=== PATIENT | female | born 1985 | race American Indian/Alaskan Native ===

== ENCOUNTER 2017-10-15 18:28 | Emergency (ER) | payer SELFPAY ==
[2017-10-15 18:46] VITALS: BP 113/79
--- NOTE | 2017-10-15 23:21 | Emergency Department Report ---
HPI - General Chief Complaint: Chest Pain Time Seen by Provider: 10/15/17 23:16 - HPI HPI: 2-year-old -[place] female comes in today for right side chest discomfort. Patient reports that this started today. She denies any cough fever no body aches no chills no nausea no vomiting no diarrhea no dysuria no shortness of breath. Past medical history gestational diabetes and preeclampsia with her fifth child. She has no known drug allergies currently taking no meds. She has not tried any OTC pain medication for this discomfort. ED Past Medical Hx - Past Medical History Previous Medical History?: Yes Hx Hypertension: Yes (Preeclampsia with 5th child) Hx Congestive Heart Failure: No Hx Diabetes: Yes (gestational DM) Hx Deep Vein Thrombosis: No Hx Renal Disease: No Hx Sickle Cell Disease: No Hx Seizures: No Hx Asthma: No Hx COPD: No Hx HIV: No - Surgical History Past Surgical History?: Yes Additional Surgical History: - Social History Smoking Status: Current Every Day Smoker Substance Use Type: None - Medications Home Medications: Home Medications Medication Instructions Recorded Confirmed Last Taken Type Vit No.126/Iron/Folic 1 each PO DAILY 11/18/13 12/29/13 12/21/13 21:22 History [Classic Tablet] ED Review of Systems ROS: Stated complaint: FLU LIKE SYMPTOMS Other details as noted in HPI Comment: All other systems reviewed and negative Constitutional: denies: chills, fever Eyes: denies: eye pain, eye discharge, vision change ENT: denies: ear pain, throat pain Respiratory: other (right chest discomfort feels like she needs to cough but no coughing) Cardiovascular: denies: chest pain, palpitations Endocrine: no symptoms reported Gastrointestinal: denies: abdominal pain, nausea, diarrhea Genitourinary: denies: urgency, dysuria, discharge Musculoskeletal: denies: back pain, joint swelling, arthralgia Skin: denies: rash, lesions Neurological: denies: headache, weakness, paresthesias Psychiatric: denies: anxiety, depression Hematological/Lymphatic: denies: easy bleeding, easy bruising Physical Exam - Physical Exam Vital Signs: Vital Signs 10/15/17 18:42 Temperature 98.6 F Pulse Rate 89 Respiratory 18 Rate Blood Pressure 113/79 O2 Sat by Pulse 98 Oximetry Physical Exam: GENERAL: Alert and oriented x3, no apparent distress, Normal Gait, atraumatic. HEAD: Head is normocephalic and a-traumatic. EYES: Extra ocular muscles are intact. Pupils are equal, round, and reactive to light and accommodation. EARS: symetrical, atraumatic, non tender, ear canal clear and moderate cerumen, tympanic membrance non inflamed. gross auditory nml bilaterally. NOSE: Nose symetrical, Nontender,Nares appeared normal. MOUTH:Mouth is well hydrated and without lesions. Tonsils nonerythematous or swollen, Uvula midline, Tongue not elevated. Mucous membranes are moist. Posterior pharynx clear, no exudate or lesions. Patent airways. NECK: Supple. Non edematous, No carotid bruits. No lymphadenopathy or thyromegaly. LUNGS: Symetrical with respiration, No wheezing, no rales or crackles, CTAB. HEART: S1, S2 present, regular rate and rhythm without murmur, no rubs, no gallops. ABDOMEN: No organomegaly was noted,Positive bowel sounds, soft, and non- distended. . Nontender to palpation on all Quadrants, NO CVA tenderness. EXTREMITIES/MUSCULOSKELETAL: No cyanosis, clubbing, rash, lesions or edema. Full ROM bilaterally. UE/LE Pulses 2+ bilaterally. LE and UE 5+ strength bilaterally NEUROLOGIC: No focal Deficit, Cranial nerves II through XII are grossly intact. No loss of sensation, No facial droop, PSYCHIATRIC: Mood is congruent with affect, denies suicidal or homicidal ideations. SKIN: Warm and dry, No lesions, No ulceration or induration present ED Course Vital Signs 10/15/17 18:42 Temperature 98.6 F Pulse Rate 89 Respiratory 18 Rate Blood Pressure 113/79 O2 Sat by Pulse 98 Oximetry ED Medical Decision Making - Radiology Data Radiology results: report reviewed Impression negative examination - Medical Decision Making Patient has been evaluated by this provider fast track. Patient's symptoms are very vague. I discussed with the chest x-ray. Critical care attestation.: If time is entered above; I have spent that time in minutes in the direct care of this critically ill patient, excluding procedure time. ED Disposition Clinical Impression: Discomfort in chest Disposition: DC-01 TO HOME OR SELFCARE Is pt being admited?: No Does the pt Need Aspirin: No Condition: Stable Additional Instructions: Chest x-ray was negative. You can take Tylenol or Motrin for chest discomfort follow-up with [facility] for further evaluation. Referrals: PRIMARY CARE, [Primary Care Provider] - 3-5 Days [facility] [Provider Group] - 3-5 Days Forms: Accompanied Note, Work/School Release Form(ED)
--- NOTE | 2017-10-16 00:39 | XRay Report ---
FINAL REPORT PROCEDURE: XR CHEST ROUTINE 2V TECHNIQUE: PA and lateral chest radiographs were obtained. CPT 00348 HISTORY: chest discomfort COMPARISON: No prior studies are available for comparison. FINDINGS: Heart: Normal size. Mediastinum/Vessels: Normal. Lungs/Pleural space: Normal. Bony thorax: No acute osseous abnormality. Other: IMPRESSION: Negative examination.
== END 2017-10-16 01:10 | disposition home or self-care (01) ==
LOC: ED 18:28
DX: R07.89 Other chest pain (principal); I10 Essential (primary) hypertension; F17.200 Nicotine dependence, unspecified, uncomplicated
CPT/HCPCS: 71046; 93005; 93010; 99283

== ENCOUNTER 2018-04-24 21:12 | Emergency (ER) | payer SELFPAY ==
[2018-04-24 21:40] VITALS: BP 123/82
[2018-04-25] MEDS ORDERED: NORCO 5/325 PO ONE (00:05)
[2018-04-25] MEDS ORDERED: NORCO 5/325 ONE (00:07)
--- NOTE | 2018-04-25 01:06 | Emergency Department Report ---
ED ENT HPI - General Chief complaint: Dental/Oral Stated complaint: TOOTHACHE Time Seen by Provider: 04/25/18 01:01 Source: patient Mode of arrival: Ambulatory Limitations: No Limitations - History of Present Illness Initial comments: Patient 33-year-old female who presents for dental pain 1 week history of infected dental caries there is no fever no chills no sore throat no ear pain patient continues to tolerate by mouth intake is 4/10 and aching patient hasn' t been unable to see dentist MD complaint: tooth pain Onset/Timin -: week(s) Location: tooth # (18) Severity: moderate Severity scale (0 -10): 4 Quality: aching Consistency: intermittent Improves with: none Worsens with: other (hot and cold stimuli ) Context- Dental: history of dental caries, poor dental care Associated Symptoms: toothache - Related Data Home Medications Medication Instructions Recorded Confirmed Last Taken Vit No.126/Iron/Folic 1 each PO DAILY 11/18/13 12/29/13 12/21/13 21:22 [Classic Tablet] Previous Rx's Medication Instructions Recorded Last Taken Type Amoxicillin 500 mg PO TID #30 capsule 04/25/18 Unknown Rx Chlorhexidine Mouthwash [Peridex] 15 ml MM BID #1 bottle 04/25/18 Unknown Rx Ibuprofen 800 mg PO TID PRN #30 tablet 04/25/18 Unknown Rx Allergies Allergy/AdvReac Type Severity Reaction Status Date / Time No Known Allergies Allergy Verified 11/18/13 15:53 ED Dental HPI - General Chief complaint: Dental/Oral Stated complaint: TOOTHACHE Time Seen by Provider: 04/25/18 01:01 Source: patient Mode of arrival: Ambulatory Limitations: No Limitations - Related Data Home Medications Medication Instructions Recorded Confirmed Last Taken Vit No.126/Iron/Folic 1 each PO DAILY 11/18/13 12/29/13 12/21/13 21:22 [Classic Tablet] Previous Rx's Medication Instructions Recorded Last Taken Type Amoxicillin 500 mg PO TID #30 capsule 04/25/18 Unknown Rx Chlorhexidine Mouthwash [Peridex] 15 ml MM BID #1 bottle 04/25/18 Unknown Rx Ibuprofen 800 mg PO TID PRN #30 tablet 04/25/18 Unknown Rx Allergies Allergy/AdvReac Type Severity Reaction Status Date / Time No Known Allergies Allergy Verified 11/18/13 15:53 ED Review of Systems ROS: Stated complaint: TOOTHACHE Other details as noted in HPI Constitutional: denies: chills, fever Eyes: denies: eye pain, eye discharge, vision change ENT: dental pain Respiratory: denies: cough, shortness of breath, wheezing Cardiovascular: denies: chest pain, palpitations Endocrine: no symptoms reported Gastrointestinal: denies: abdominal pain, nausea, diarrhea Genitourinary: denies: urgency, dysuria, discharge Musculoskeletal: denies: back pain, joint swelling, arthralgia Skin: denies: rash, lesions Neurological: denies: headache, weakness, paresthesias Psychiatric: denies: anxiety, depression Hematological/Lymphatic: denies: easy bleeding, easy bruising ED Past Medical Hx - Past Medical History Hx Hypertension: Yes (Preeclampsia with 5th child) Hx Congestive Heart Failure: No Hx Diabetes: Yes (gestational DM) Hx Deep Vein Thrombosis: No Hx Renal Disease: No Hx Sickle Cell Disease: No Hx Seizures: No Hx Asthma: No Hx COPD: No Hx HIV: No - Surgical History Additional Surgical History: - Social History Smoking Status: Never Smoker Substance Use Type: None - Medications Home Medications: Home Medications Medication Instructions Recorded Confirmed Last Taken Type Vit No.126/Iron/Folic 1 each PO DAILY 11/18/13 12/29/13 12/21/13 21:22 History [Classic Tablet] Amoxicillin 500 mg PO TID #30 capsule 04/25/18 Unknown Rx Chlorhexidine Mouthwash [Peridex] 15 ml MM BID #1 bottle 04/25/18 Unknown Rx Ibuprofen 800 mg PO TID PRN #30 tablet 04/25/18 Unknown Rx ED Physical Exam - General Limitations: No Limitations General appearance: alert, in no apparent distress - Head Head exam: Present: atraumatic, normocephalic - Eye Eye exam: Present: normal appearance - ENT ENT exam: Present: mucous membranes moist, TM's normal bilaterally, normal external ear exam - Expanded ENT Exam Expanded Mouth exam: Absent: trismus Teeth exam: Present: dental caries, dental tenderness # (18 no focal abscess no gum or facial swelling uvula midline no edema no stridor ) Throat exam: Positive: normal inspection. Negative: tonsillar erythema, tonsillomegaly, tonsillar exudate, R peritonsillar mass, L peritonsillar mass - Neck Neck exam: Present: normal inspection, full ROM. Absent: tenderness, meningismus, lymphadenopathy, thyromegaly - Respiratory Respiratory exam: Present: normal lung sounds bilaterally. Absent: respiratory distress, wheezes, chest wall tenderness - Cardiovascular Cardiovascular Exam: Present: regular rate, normal rhythm, normal heart sounds. Absent: systolic murmur, diastolic murmur, rubs, gallop - GI/Abdominal GI/Abdominal exam: Present: soft, normal bowel sounds. Absent: tenderness, bruit, hernia - Rectal Rectal exam: Present: deferred - Extremities Exam Extremities exam: Present: normal inspection - Back Exam Back exam: Present: normal inspection - Neurological Exam Neurological exam: Present: alert, oriented X3, CN II-XII intact, normal gait, reflexes normal - Psychiatric Psychiatric exam: Present: normal affect, normal mood - Skin Skin exam: Present: warm, dry, intact, normal color. Absent: rash ED Course Vital Signs 04/24/18 21:35 Temperature 99 F Pulse Rate 76 Respiratory 16 Rate Blood Pressure 123/82 O2 Sat by Pulse 100 Oximetry ED Medical Decision Making - Medical Decision Making Patient presents with dental pain with infected dental caries there is no facial swelling mild gum erythema to #18 is no trismus or stridor . Uvula is midline patient is tolerating by mouth intake without complications or throat pain plan DC'd home prescription for amoxicillin Peridex ibuprofen patient will follow with [facility] in 2-3 days patient verbalizes understanding and agreement was signed be DC'd home in stable condition at this Critical care attestation.: If time is entered above; I have spent that time in minutes in the direct care of this critically ill patient, excluding procedure time. ED Disposition Clinical Impression: Infected dental carries Disposition: DC-01 TO HOME OR SELFCARE Is pt being admited?: No Does the pt Need Aspirin: No Condition: Good Instructions: Toothache (ED), Dental Caries (ED) Prescriptions: Amoxicillin 500 mg PO TID #30 capsule Chlorhexidine Mouthwash [Peridex] 15 ml MM BID #1 bottle Ibuprofen 800 mg PO TID PRN #30 tablet PRN Reason: pain Referrals: [facility] [Outside] - 3-5 Days Forms: Work/School Release Form(ED) Time of Disposition: 01:11
== END 2018-04-25 01:28 | disposition home or self-care (01) ==
LOC: ED 21:12
DX: K02.9 Dental caries, unspecified (principal); I10 Essential (primary) hypertension
CPT/HCPCS: 99282

== ENCOUNTER 2019-03-24 11:12 | Emergency (ER) | payer MEDICAID ==
[2019-03-24] MEDS ORDERED: STADOL IV ONE (12:28)
[2019-03-24] MEDS ORDERED: ZOFRAN IV ONE (12:28)
[2019-03-24 13:31] LABS: Basophils # (Auto) 0.1 K/mm3 (0.0-0.1); Basophils % (Auto) 0.9 % (0.0-1.8); Eosinophils # (Auto) 0.1 K/mm3 (0.0-0.4); Eosinophils % (Auto) 1.7 % (0.0-4.3); Hematocrit 32.4 % (30.3-42.9); Hemoglobin 10.9 gm/dl (10.1-14.3); Lymphocytes # (Auto) 1.9 K/mm3 (1.2-5.4); Lymphocytes % (Auto) 24.2 % (13.4-35.0); Mean Corpuscular HGB Conc 34 % (30-34); Mean Corpuscular Volume 88 fl (79-97); Monocytes # (Auto) 0.6 K/mm3 (0.0-0.8); Monocytes % (Auto) 7.7 % (0.0-7.3); Platelet Count 208 K/mm3 (140-440); Red Blood Count 3.68 M/mm3 (3.65-5.03); Red Cell Distribution Width 15.1 % (13.2-15.2)
[2019-03-24 13:43] LABS: INR 1.06 (0.87-1.13)
--- NOTE | 2019-03-24 13:43 | Ultrasound Report ---
OB ULTRASOUND >= 14 WEEKS FETUS INDICATION: Lower abdominal pain/fatigue for 3 days COMPARISON: None FINDINGS: A single gestation intrauterine is present with variable presentation. The placenta is ante rior, grade 1 and free of the cervical os. heart tones measure 144 bpm. Amniotic fluid volume is subjectively normal. anatomical survey was not performed. Biparietal diameter is 3.5 cm which equals 16 weeks 5 days. Head circumference is 13.0 cm which equals 16 weeks 4 days. Abdominal circumference is 10.1 cm which equals 16 weeks 1 day. Femur length is 2.1 cm which equals 16 weeks 1 day. Overall estimated sonographic age is 16 weeks 3 days. Estimated due date 09/05/2019. Estimated weight: 147 g +/- 22 g. HC/AC ratio: 1.29. Cephalic index: 83.7.. IMPRESSION: Viable single intrauterine as described. No acute abnormality is detected. Signer Name: Gustabo José Jr, MD Signed: 03/24/2019 1:39 PM Workstation Name: [id number]
--- NOTE | 2019-03-24 13:52 | Emergency Department Report ---
ED General Adult HPI - General Chief complaint: Abdominal Pain Stated complaint: WEAKNESS/17WKS PREG Time Seen by Provider: 03/24/19 11:54 Source: EMS Mode of arrival: Stretcher Limitations: No Limitations - History of Present Illness Initial comments: She presents to emergency department with a chief complaint of low abdominal cramping and pain. The patient is approximately 17 weeks and denies any vaginal bleeding in the discharge. Patient states the symptoms started yesterday. Patient also complains of a lightheaded and feels dehydrated. -: Sudden Location: abdomen Severity scale (0 -10): 5 Quality: sharp Consistency: constant Improves with: none Worsens with: none Associated Symptoms: denies other symptoms Treatments Prior to Arrival: none - Related Data Home Medications Medication Instructions Recorded Confirmed Last Taken Vit No.126/Iron/Folic 1 each PO DAILY 11/18/13 12/29/13 12/21/13 21:22 [Classic Tablet] Previous Rx's Medication Instructions Recorded Last Taken Type Amoxicillin 500 mg PO TID #30 capsule 04/25/18 Unknown Rx Chlorhexidine Mouthwash [Peridex] 15 ml MM BID #1 bottle 04/25/18 Unknown Rx Ibuprofen 800 mg PO TID PRN #30 tablet 04/25/18 Unknown Rx Acetaminophen/Codeine [Tylenol 1 tab PO Q6H PRN #15 tab 03/24/19 Unknown Rx /Codeine # 3 tab] Ondansetron [Zofran Odt] 4 mg PO Q4HR PRN #20 tab.rapdis 03/24/19 Unknown Rx Allergies Allergy/AdvReac Type Severity Reaction Status Date / Time No Known Allergies Allergy Verified 11/18/13 15:53 ED Review of Systems ROS: Stated complaint: WEAKNESS/17WKS PREG Other details as noted in HPI Comment: All other systems reviewed and negative Constitutional: denies: chills, fever Eyes: denies: eye pain, eye discharge, vision change ENT: denies: ear pain, throat pain Respiratory: denies: cough, shortness of breath, wheezing Cardiovascular: denies: chest pain, palpitations Endocrine: no symptoms reported Gastrointestinal: abdominal pain. denies: nausea, diarrhea Genitourinary: denies: urgency, dysuria, discharge Musculoskeletal: denies: back pain, joint swelling, arthralgia Skin: denies: rash, lesions Neurological: denies: headache, weakness, paresthesias Psychiatric: denies: anxiety, depression Hematological/Lymphatic: denies: easy bleeding, easy bruising ED Past Medical Hx - Past Medical History Previous Medical History?: Yes Hx Hypertension: Yes (Preeclampsia with 5th child) Hx Congestive Heart Failure: No Hx Diabetes: Yes (gestational DM) Hx Deep Vein Thrombosis: No Hx Renal Disease: No Hx Sickle Cell Disease: No Hx Seizures: No Hx Asthma: No Hx COPD: No Hx HIV: No - Surgical History Past Surgical History?: Yes Additional Surgical History: - Social History Smoking Status: Never Smoker Substance Use Type: None - Medications Home Medications: Home Medications Medication Instructions Recorded Confirmed Last Taken Type Vit No.126/Iron/Folic 1 each PO DAILY 11/18/13 12/29/13 12/21/13 21:22 History [Classic Tablet] Amoxicillin 500 mg PO TID #30 capsule 04/25/18 Unknown Rx Chlorhexidine Mouthwash [Peridex] 15 ml MM BID #1 bottle 04/25/18 Unknown Rx Ibuprofen 800 mg PO TID PRN #30 tablet 04/25/18 Unknown Rx Acetaminophen/Codeine [Tylenol 1 tab PO Q6H PRN #15 tab 03/24/19 Unknown Rx /Codeine # 3 tab] Ondansetron [Zofran Odt] 4 mg PO Q4HR PRN #20 tab.rapdis 03/24/19 Unknown Rx ED Physical Exam - General Limitations: No Limitations General appearance: alert, in no apparent distress - Head Head exam: Present: atraumatic, normocephalic - Eye Eye exam: Present: normal appearance, PERRL, EOMI - ENT ENT exam: Present: mucous membranes moist - Neck Neck exam: Present: normal inspection - Respiratory Respiratory exam: Present: normal lung sounds bilaterally. Absent: respiratory distress - Cardiovascular Cardiovascular Exam: Present: regular rate, normal rhythm. Absent: systolic murmur, diastolic murmur, rubs, gallop - GI/Abdominal GI/Abdominal exam: Present: soft, tenderness (TTP diffusely ), normal bowel sounds. Absent: distended - Extremities Exam Extremities exam: Present: normal inspection - Back Exam Back exam: Present: normal inspection - Neurological Exam Neurological exam: Present: alert, oriented X3, CN II-XII intact. Absent: motor sensory deficit - Psychiatric Psychiatric exam: Present: normal affect, normal mood - Skin Skin exam: Present: warm, dry, intact, normal color. Absent: rash ED Course Vital Signs 03/24/19 03/24/19 03/24/19 11:44 11:47 11:53 Temperature 97.8 F Pulse Rate 67 Respiratory 16 Rate Blood Pressure 115/68 O2 Sat by Pulse 100 100 100 Oximetry 03/24/19 03/24/19 03/24/19 12:00 12:15 13:25 Temperature Pulse Rate Respiratory Rate Blood Pressure 89/53 89/53 108/69 O2 Sat by Pulse 100 100 100 Oximetry 03/24/19 03/24/19 13:31 13:45 Temperature Pulse Rate Respiratory Rate Blood Pressure 96/60 95/58 O2 Sat by Pulse 100 100 Oximetry ED Medical Decision Making - Lab Data Result diagrams: 03/24/19 13:16 03/24/19 13:16 Lab Results 03/24/19 03/24/19 03/24/19 Range/Units 13:16 13:16 13:16 WBC 7.7 (4.5-11.0) K/mm3 RBC 3.68 (3.65-5.03) M/mm3 Hgb 10.9 (10.1-14.3) gm/dl Hct 32.4 (30.3-42.9) % MCV 88 (79-97) fl MCH 30 (28-32) pg MCHC 34 (30-34) % RDW 15.1 (13.2-15.2) % Plt Count 208 (140-440) K/mm3 Lymph % (Auto) 24.2 (13.4-35.0) % [place] % (Auto) 7.7 H (0.0-7.3) % Eos % (Auto) 1.7 (0.0-4.3) % Baso % (Auto) 0.9 (0.0-1.8) % Lymph # 1.9 (1.2-5.4) K/mm3 [place] # 0.6 (0.0-0.8) K/mm3 Eos # 0.1 (0.0-0.4) K/mm3 Baso # 0.1 (0.0-0.1) K/mm3 Seg Neutrophils % 65.5 (40.0-70.0) % Seg Neutrophils # 5.0 (1.8-7.7) K/mm3 PT 13.5 (12.2-14.9) Sec. INR 1.06 (0.87-1.13) APTT 29.0 (24.2-36.6) Sec. Sodium 134 L (137-145) mmol/L Potassium 3.8 (3.6-5.0) mmol/L Chloride 99.3 (98-107) mmol/L Carbon Dioxide 23 (22-30) mmol/L Anion Gap 16 mmol/L BUN 5 L (7-17) mg/dL Creatinine 0.3 L (0.7-1.2) mg/dL Estimated GFR > 60 ml/min BUN/Creatinine Ratio 17 % Glucose 82 (65-100) mg/dL Calcium 9.0 (8.4-10.2) mg/dL Total Bilirubin 0.70 (0.1-1.2) mg/dL AST 19 (5-40) units/L ALT 11 (7-56) units/L Alkaline Phosphatase 34 L (35-129) units/L Total Protein 6.9 (6.3-8.2) g/dL Albumin 4.0 (3.9-5) g/dL Albumin/Globulin Ratio 1.4 % Urine Color (Yellow) Urine Turbidity (Clear) Urine pH (5.0-7.0) Ur Specific [place] (1.003-1.030) Urine Protein (Negative) mg/dL Urine Glucose (UA) (Negative) mg/dL Urine Ketones (Negative) mg/dL Urine Blood (Negative) Urine Nitrite (Negative) Urine Bilirubin (Negative) Urine Urobilinogen (<2.0) mg/dL Ur Leukocyte Esterase (Negative) Urine WBC (Auto) (0.0-6.0) /HPF Urine RBC (Auto) (0.0-6.0) /HPF U Epithel Cells (Auto) (0-13.0) /HPF Urine Bacteria (Auto) (Negative) /HPF Urine Mucus /HPF 03/24/19 Range/Units Unknown WBC (4.5-11.0) K/mm3 RBC (3.65-5.03) M/mm3 Hgb (10.1-14.3) gm/dl Hct (30.3-42.9) % MCV (79-97) fl MCH (28-32) pg MCHC (30-34) % RDW (13.2-15.2) % Plt Count (140-440) K/mm3 Lymph % (Auto) (13.4-35.0) % [place] % (Auto) (0.0-7.3) % Eos % (Auto) (0.0-4.3) % Baso % (Auto) (0.0-1.8) % Lymph # (1.2-5.4) K/mm3 [place] # (0.0-0.8) K/mm3 Eos # (0.0-0.4) K/mm3 Baso # (0.0-0.1) K/mm3 Seg Neutrophils % (40.0-70.0) % Seg Neutrophils # (1.8-7.7) K/mm3 PT (12.2-14.9) Sec. INR (0.87-1.13) APTT (24.2-36.6) Sec. Sodium (137-145) mmol/L Potassium (3.6-5.0) mmol/L Chloride (98-107) mmol/L Carbon Dioxide (22-30) mmol/L Anion Gap mmol/L BUN (7-17) mg/dL Creatinine (0.7-1.2) mg/dL Estimated GFR ml/min BUN/Creatinine Ratio % Glucose (65-100) mg/dL Calcium (8.4-10.2) mg/dL Total Bilirubin (0.1-1.2) mg/dL AST (5-40) units/L ALT (7-56) units/L Alkaline Phosphatase (35-129) units/L Total Protein (6.3-8.2) g/dL Albumin (3.9-5) g/dL Albumin/Globulin Ratio % Urine Color Yellow (Yellow) Urine Turbidity Hazy (Clear) Urine pH 6.0 (5.0-7.0) Ur Specific [place] 1.020 (1.003-1.030) Urine Protein <15 mg/dl (Negative) mg/dL Urine Glucose (UA) Neg (Negative) mg/dL Urine Ketones 20 (Negative) mg/dL Urine Blood Neg (Negative) Urine Nitrite Neg (Negative) Urine Bilirubin Neg (Negative) Urine Urobilinogen < 2.0 (<2.0) mg/dL Ur Leukocyte Esterase Neg (Negative) Urine WBC (Auto) 1.0 (0.0-6.0) /HPF Urine RBC (Auto) 2.0 (0.0-6.0) /HPF U Epithel Cells (Auto) 5.0 (0-13.0) /HPF Urine Bacteria (Auto) 1+ (Negative) /HPF Urine Mucus Few /HPF - Radiology Data Radiology results: image reviewed - Medical Decision Making Discussed results with patient follows [facility] at [facility] Critical care attestation.: If time is entered above; I have spent that time in minutes in the direct care of this critically ill patient, excluding procedure time. ED Disposition Clinical Impression: Abdominal pain during Disposition: DC-01 TO HOME OR SELFCARE Is pt being admited?: No Does the pt Need Aspirin: No Condition: Stable Instructions: Abdominal Pain (ED), (ED) Referrals: RAMA HARDING MD [Primary Care Provider] - 3-5 Days [facility] [Provider Group] - 3-5 Days Time of Disposition: 15:55
[2019-03-24] MEDS ORDERED: NACL 0.9% 1000 ML 1,000 ML IV ONE (13:53)
[2019-03-24 13:54] LABS: Alanine Aminotransferase 11 units/L (7-56); BUN/Creatinine Ratio 17; Blood Urea Nitrogen 5 mg/dL (7-17); Hemolysis Index 27
[2019-03-24 14:56] LABS: Bacteria,Urine 1+ /HPF (Negative); Bilirubin,Urine NEG (Negative); Blood,Urine NEG (Negative); Color,Urine Yellow (Yellow); Mucus,Urine FEW /HPF; Protein,Urine <15 mg/dL mg/dL (Negative); Urobilinogen,Urine < 2.0 mg/dL (<2.0)
[2019-03-24 16:21] VITALS: BP 104/54
== END 2019-03-24 16:22 | disposition home or self-care (01) ==
LOC: ED 11:12
DX: O26.892 Other specified pregnancy related conditions, second trimester (principal); R10.30 Lower abdominal pain, unspecified; R42 Dizziness and giddiness; O16.2 Unspecified maternal hypertension, second trimester; O24.419 Gestational diabetes mellitus in pregnancy, unspecified control; Z3A.17 17 weeks gestation of pregnancy; Z98.890 Other specified postprocedural states; Z79.899 Other long term (current) drug therapy
CPT/HCPCS: 36415; 76805; 80053; 81001; 85025; 85610; 85730; 96361; 96374; 96375; 99284; J0595; J2405; J7030

== ENCOUNTER 2019-07-21 19:52 | Inpatient (IN) | payer MEDICAID ==
[2019-07-21] MEDS ORDERED: LACTATED RINGERS 1,000 ML IV ONE (20:59)
[2019-07-21] MEDS: TERBUTALINE 1 MG/1 ML INJ SUB-Q SCH ×2 (21:35→22:40)
--- NOTE | 2019-07-21 22:25 | Ultrasound Report ---
ULTRASOUND OBSTETRIC INDICATION: contractions. Clinical age of 17 weeks, 4 days. TECHNIQUE: Transabdominal. COMPARISON: OB ultrasound from 03/24/2019. FINDINGS: There is a single intrauterine . Biparietal Diameter = 3.5 cm = 16 weeks, 5 day(s). Head Circumference = 13.0 cm = 16 weeks, 4 day(s). Abdominal Circumference = 10.1 cm = 16 weeks, 1 day(s). Femur Length = 2.1 cm = 16 weeks, 1 day(s). Average Ultrasound Age (AUA) = 16 weeks, 3 day(s). Heart Rate: 144 beats per minute. Position: cephalic. Cervix: closed. Placenta: anterior and free of the os. Amniotic Fluid Volume: normal Amniotic Fluid Index (RAMANA) in cm (if calculated): 9.2. Maternal Adnexa: No significant abnormality. IMPRESSION: 1. Single, living intrauterine with estimated sonographic age of 16 weeks, 3 day(s). 2. No significant sonographic abnormality. Signer Name: Lionel Hyatt MD Signed: 07/21/2019 10:21 PM Workstation Name: [id number]
[2019-07-21 23:09] LABS: Bacteria,Urine 1+ /HPF (Negative); Bilirubin,Urine NEG (Negative); Blood,Urine NEG (Negative); Color,Urine Straw (Yellow); Protein,Urine <15 mg/dL mg/dL (Negative); Urobilinogen,Urine < 2.0 mg/dL (<2.0); WBC,Urine < 1.0 /HPF (0.0-6.0)
[2019-07-21 23:15] LABS: Amphetamine Screen,Urine PRESUMPTIVE NEGATIVE; Benzodiazepines Screen,Urine PRESUMPTIVE NEGATIVE; Cannabinoid Screen,Urine PRESUMPTIVE NEGATIVE; Cocaine Screen,Urine PRESUMPTIVE NEGATIVE; Methadone Screen,Urine PRESUMPTIVE NEGATIVE; Opiate Screen,Urine PRESUMPTIVE NEGATIVE
[2019-07-22] MEDS ORDERED: AMPICILLIN/NS 2 GM/100 ML 2 GM/100 ML BAG IV ONE (00:11)
[2019-07-22] MEDS ORDERED: DOCUSATE SODIUM 100 MG CAP PO PRN ×2 (00:11→01:11)
[2019-07-22] MEDS ORDERED: ACETAMINOPHEN 325 MG TAB PO PRN ×2 (00:11→01:11)
[2019-07-22] MEDS ORDERED: MAGNESIUM SULFATE 4 GM/100 ML BAG IV ONE (00:13)
[2019-07-22] MEDS ORDERED: LACTATED RINGERS 75 ML IV SCH (01:00)
--- NOTE | 2019-07-22 01:05 | History and Physical Report ---
History of Present Illness Date of examination: 07/22/19 Date of admission: 07/21/19 20:59 Chief complaint: Contractions History of present illness: Pt is a 34yo BF EDC 09/05/19; EGA 33 4/7 weeks presents to [facility] L&D complaining of RUC's q 3-5 mins. She received care at [facility] and course significant for multiple deliveries between 30-35weeks. She was on [place] with vaginal progesterone, but that was discontinued 2 weeks ago. She was hospitalized at [facility] about 2 weeks ago, and did NOT receive steroids. records are not available. Past History Past Medical History: no pertinent history Past Surgical History: section (2004) Social history: no significant social history, single - Obstetrical History Expected Date of Delivery: 09/05/19 Actual Gestation: 33 Week(s) 5 Day(s) : 11 Medications and Allergies Allergies Allergy/AdvReac Type Severity Reaction Status Date / Time No Known Allergies Allergy Verified 11/18/13 15:53 Home Medications Medication Instructions Recorded Confirmed Last Taken Type Vit No.126/Iron/Folic 1 each PO DAILY 11/18/13 07/21/19 07/21/19 History [Classic Tablet] Ferrous Sulfate [Iron 325 MG] 1 tab PO DAILY 07/21/19 07/21/19 07/20/19 History Active Meds: Active Medications Acetaminophen (Tylenol) 650 mg PO Q4H PRN PRN Reason: Pain MILD(1-3)/Fever >100.5/KENDALL Betamethasone Acet/Betameth SodPhos (Celestone Soluspan) 12 mg IM Q24H YONATAN Stop: 07/23/19 01:01 Docusate Sodium (Colace) 100 mg PO Q12H PRN PRN Reason: Constipation Lactated Ringer's (Lactated Ringers) 75 mls @ 125 mls/hr IV DIRECT YONATAN Ampicillin Sodium (Ampicillin/Ns 2 Gm/100 Ml) 2 gm in 100 mls @ 100 mls/hr IV ONCE ONE; Protocol Stop: 07/22/19 01:10 Ampicillin Sodium (Ampicillin/Ns 1 Gm/50 Ml) 1 gm in 50 mls @ 100 mls/hr IV Q4HR YONATAN; Protocol Magnesium Sulfate (Magnesium Sulfate 40gm/1000ml) 40 gm in 1,000 mls @ 50 mls/hr IV DIRECT [facility] Multivitamins/Iron/Calcium ( Vitamin) 1 each PO QDAY [facility] Terbutaline Sulfate (Brethine) 0.25 mg SUB-Q Q20MIN [facility]ON[facility]AN Stop: 07/23/19 22:01 Review of Systems All systems: negative - Vital Signs Vital signs: Vital Signs Temp Pulse Resp BP 97.7 F 74 18 131/85 07/21/19 21:03 07/21/19 21:03 07/21/19 21:03 07/21/19 21:03 Temp Pulse Resp BP Pulse Ox 97.7 F 87 18 108/60 100 07/21/19 21:03 07/22/19 00:29 07/21/19 21:03 07/22/19 00:16 07/22/19 00:29 - Physical Exam Breasts: Positive: deferred Cardiovascular: Regular rate Lungs: Positive: Clear to auscultation Abdomen: Positive: normal appearance Genitourinary (Female): Positive: normal external genitalia Vagina: Positive: normal moisture Uterus: Positive: enlarged Extremities: Positive: normal - Obstetrical FHR: category 1 Uterine Contraction Monitor Mode: External Cervical Dilatation: 4.5 (per nurse) Cervical Effacement Percentage: 50 (per nurse) station: -3 Uterine Contraction Pattern: Regular Uterine Tone Measurement Phase: Contraction Uterine Contraction Intensity: Moderate Results Result Diagrams: 07/22/19 00:00 All other labs normal. Assessment and Plan - Patient Problems (1) 33 weeks gestation of Onset Date: 07/22/19 Current Visit: Yes Status: Acute Plan to address problem: A: IUP @ 33 4/7 weeks in labor contractions History of deliveries P: Admit to L&D for attempt at tocolysis with IV Magnesium sulfate, steroids and IV antibiotics Obtain records from [facility] Obtain labs and Ob u/s for growth, EFW and position. [facility] and NICU consultation. (2) contractions Onset Date: 07/22/19 Current Visit: Yes Status: Acute (3) Previous delivery in third trimester, antepartum Onset Date: 07/22/19 Current Visit: Yes Status: Acute
[2019-07-22] MEDS ORDERED: ONDANSETRON 4 MG/2 ML INJ IV PRN (01:11)
[2019-07-22 01:13] LABS: Basophils % (Auto) 0.3 % (0.0-1.8); Eosinophils # (Auto) 0.1 K/mm3 (0.0-0.4); Hemoglobin 9.9 gm/dl (10.1-14.3); Lymphocytes # (Auto) 2.4 K/mm3 (1.2-5.4); Lymphocytes % (Auto) 21.3 % (13.4-35.0); Mean Corpuscular HGB Conc 32 % (30-34); Mean Corpuscular Volume 83 fl (79-97); Monocytes # (Auto) 0.8 K/mm3 (0.0-0.8); Monocytes % (Auto) 6.6 % (0.0-7.3); Platelet Count 230 K/mm3 (140-440); Red Blood Count 3.74 M/mm3 (3.65-5.03); Red Cell Distribution Width 14.7 % (13.2-15.2)
[2019-07-22] MEDS: LACTATED RINGERS 1,000 ML IV SCH ×2 (01:18→16:11)
[2019-07-22] MEDS: BETAMET ACET/BETAMET NA PH 6 MG/ML INJ 5 ML MDV IM SCH (01:21)
[2019-07-22 01:38] LABS: Hepatitis C Virus Antibody Non-Reactive (NonReactive)
[2019-07-22] MEDS ORDERED: BUTORPHANOL 2 MG/1 ML INJ IV ONE ×2 (02:06→06:44)
[2019-07-22] MEDS: MAGNESIUM SULFATE 40GM/1000ML 40 GM/1,000 ML BAG IV SCH ×2 (03:00→21:28)
[2019-07-22] MEDS ORDERED: AMPICILLIN/NS 1 GM/50 ML 1 GM/50 ML BAG IV SCH (04:12)
[2019-07-22] MEDS: AMPICILLIN/NS 1 GM/50 ML 1 GM/50 ML BAG IV SCH ×4 (08:46→20:25)
--- NOTE | 2019-07-22 09:54 | Consultation ---
Consult Note - Parent Education I met with parent(s) and discussed the following:: Need for NICU admission, Poss ible need for intubation and surfactant or other resp support, Temperature regulation, Possible need for IV fluids/TPN and IV antibiotics, Importance of providing breast milk & encouraged pumping aft delivery, Slow feeding advancement and monitoring of tolerance. NG/OG feeds, Need to monitor for jaundice Parent(s) demonstrated understanding of all the information:: Yes Additional Comment: Mother has had several infants around 33 weeks. She was sleeping upon arrival for consult. Briefly discussed all of the above. No questions and verbalized understanding of information Assessment and Plan - Assessment Gestation:: 33 Baby's gender: Female - Plan Plan: Agree with Mag & steroids Will attend delivery Please call NICU with questions
[2019-07-22] MEDS ORDERED: PRENATAL VIT27-FE FUMARATE-FOLIC ACID VIT TAB PO SCH (10:00)
--- NOTE | 2019-07-22 10:02 | Consultation ---
History of Present Illness Reason for consult: contractions (Pt is a 34yo BF EDC 09/05/19; EGA 33 4/7 weeks presents to [facility] L&D complaining of RUC's She received initial care with Dr Mason Crouch then at [facility] and course significant for multiple deliveries x 7 ( 35-36 weeks0. She was on [place] with vaginal progesterone, but that was discontinued 2 weeks ago by [facility] provider She was hospitalized at [facility] about 2 weeks ago, and did NOT receive steroids. records are not available. Patient seen at [facility] 05/01/19 : Hx of GDM, Hx of PreEclampsia , and Hx of PTL/PTD. Denies sxs of PreEclampsia ,) Past History Past Medical History: no pertinent history Past Surgical History: section (2004) - Obstetrical History : 11 Medications and Allergies Allergies Allergy/AdvReac Type Severity Reaction Status Date / Time No Known Allergies Allergy Verified 11/18/13 15:53 Home Medications Medication Instructions Recorded Confirmed Last Taken Type Vit No.126/Iron/Folic 1 each PO DAILY 11/18/13 07/21/19 07/21/19 History [Classic Tablet] Ferrous Sulfate [Iron 325 MG] 1 tab PO DAILY 07/21/19 07/21/19 07/20/19 History Active Meds: Active Medications Acetaminophen (Tylenol) 650 mg PO Q4H PRN PRN Reason: Pain MILD(1-3)/Fever >100.5/KENDALL Betamethasone Acet/Betameth SodPhos (Celestone Soluspan) 12 mg IM Q24H YON[facility]AN Stop: 07/23/19 01:01 Last Admin: 07/22/19 01:21 Dose: 12 mg Documented by: Docusate Sodium (Colace) 100 mg PO Q12H PRN PRN Reason: Constipation Magnesium Sulfate (Magnesium Sulfate 40gm/1000ml) 40 gm in 1,000 mls @ 50 mls/hr IV DIRECT YONATAN Last Admin: 07/22/19 03:00 Dose: 2 gm/hr, 50 mls/hr Documented by: Lactated Ringer's (Lactated Ringers) 1,000 mls @ 125 mls/hr IV DIRECT YONATAN Last Admin: 07/22/19 01:18 Dose: 125 mls/hr Documented by: Ampicillin Sodium (Ampicillin/Ns 1 Gm/50 Ml) 1 gm in 50 mls @ 100 mls/hr IV Q4H [facility]; Protocol Last Admin: 07/22/19 08:46 Dose: 100 mls/hr Documented by: Multivitamins/Iron/Calcium ( Vitamin) 1 each PO QDAY [facility] Ondansetron HCl (Zofran) 4 mg IV Q6H PRN PRN Reason: Nausea And Vomiting Last Admin: 07/22/19 07:05 Dose: 4 mg Documented by: Terbutaline Sulfate (Brethine) 0.25 mg SUB-Q Q20MIN [facility] Stop: 07/23/19 22:01 Last Admin: 07/21/19 22:40 Dose: 0.25 mg Documented by: Review of Systems Constitutional: no fever, no chills Eyes: deferred Ears, nose, mouth and throat: no headache Cardiovascular: no chest pain, no rapid/irregular heart beat, no edema, no syncope, no shortness of breath, no high blood pressure Respiratory: no shortness of breath Breasts: deferred Gastrointestinal: no abdominal pain, no vomiting, no diarrhea Genitourinary: contractions (reports irregular contractions which have decreased ), other (reports pelvic pressure ), no vaginal bleeding, no vaginal discharge, no leakage of fluid Rectal Exam: deferred Musculoskeletal: no low back pain Integumentary: no rash Neurological: no headaches, no migraines Psychiatric: no depression Endocrine: other (hx of GDM : patient reports she has not had 1 GTT screen ) Allergic/Immunologic: no wheezing - Vital Signs Vital signs: Vital Signs Temp Pulse Resp BP 97.7 F 74 18 131/85 07/21/19 21:03 07/21/19 21:03 07/21/19 21:03 07/21/19 21:03 Temp Pulse Resp BP Pulse Ox 97.4 F L 87 16 90/56 99 07/22/19 08:01 07/22/19 09:54 07/22/19 08:01 07/22/19 09:54 07/22/19 03:40 - Physical Exam Breasts: Positive: deferred Cardiovascular: Regular rate Lungs: Positive: Normal air movement Abdomen: Positive: other (Gravid ). Negative: tenderness, guarding Cervix: Positive: other (per report RN SVE of 4 cm ) Uterus: Positive: other. Negative: tender Extremities: Negative: edema Deep Tendon Reflex Grade: Normal +2 - Obstetrical FHR: category 1 (for 33 weeks ) Uterine Contraction Monitor Mode: External Uterine Contraction Pattern: Irregular (Q 6-10 min) Uterine Contraction Intensity: Mild Results Result Diagrams: 07/22/19 00:00 Abnormal lab results 07/22/19 07/22/19 Range/Units 00:00 07:00 WBC 11.4 H (4.5-11.0) K/mm3 Hgb 9.9 L (10.1-14.3) gm/dl MCH 26 L (28-32) pg Seg Neutrophils % 70.8 H (40.0-70.0) % Seg Neutrophils # 8.0 H (1.8-7.7) K/mm3 Magnesium 5.40 H (1.7-2.3) mg/dL All other labs normal. Ultrasound: report reviewed (see preliminary report : IUP 33.3 weeks RAMANA of 9.2 weeks VTX cervical length of 4.0 cm EFW [id number] see chart for full report) Assessment and Plan A: IUP @ 33 4/7 weeks in labor contractions improving Advanced cervical dilations History of deliveries x 7 - previous [place] use ( was d/c by [facility] 2 weeks ) As per [facility] US assessment cervical length of 4.0 cm History of GDM History of PreEclampsia - Stable BP with NO LETTUCE TRIMMER features History of C/S MgSO4 in progress for neuroprotection BMZ in progress for FLM S/P NICU consult anemia P: Continue admission to L&D for attempt at tocolysis with IV Magnesium sulfate, steroids and IV antibiotics Obtain records from [facility] to amend report ( assessment from 02/2019) OB provider to perform clinical exam : speculum exam r/o ROM and SVE ( Reported SVE of 4/50/-1 however Normal [facility] US cervical length of 4 cm ) Obtain [address] and treat anemia
--- NOTE | 2019-07-22 13:42 | Progress Note ---
Assessment and Plan - Patient Problems (1) 33 weeks gestation of Onset Date: 07/22/19 Current Visit: Yes Status: Acute Plan to address problem: A: IUP @ 33 5/7 weeks contractions - resolved. History of deliveries P: She is stable s/p tocolysis with IV Magnesium sulfate, steroids and IV antibiotics records from [facility] reviewed [facility] and NICU consultation completed May go home today Follow up in office in 5 days. (2) contractions Onset Date: 07/22/19 Current Visit: Yes Status: Resolved (3) Previous delivery in third trimester, antepartum Onset Date: 07/22/19 Current Visit: Yes Status: Chronic Subjective - Subjective Date of service: 07/22/19 Principal diagnosis: IUP @ 33 5/7 weeks; contractions Interval history: Pt is a 34yo BF EDC 09/05/19; EGA 33 4/7 weeks presents to [facility] L&D complaining of RUC's q 3-5 mins. She received care at [facility] and course significant for multiple deliveries between 30-35weeks. She was on [place] with vaginal progesterone, but that was discontinued 2 weeks ago. She was hospitalized at [facility] about 2 weeks ago, and did NOT receive steroids. records are now available. She received IV Magnesium sulfate, steroids and antibiotics and her contractions have resolved. Cx /V/-2 - essentially unchanged from her [facility] admission. [facility] records reviewed. Patient reports: movement normal, contractions, no new complaints, no loss of fluid, no vaginal bleeding Objective - Vital Signs Vital Signs: Vital Signs - 12hr 07/22/19 07/22/19 07/22/19 01:42 01:47 01:54 Temperature Pulse Rate 86 82 77 Respiratory Rate Blood Pressure 98/67 98/59 98/52 Blood Pressure [Right] O2 Sat by Pulse Oximetry 07/22/19 07/22/19 07/22/19 01:59 02:03 02:09 Temperature Pulse Rate 74 77 75 Respiratory Rate Blood Pressure 96/59 92/51 100/59 Blood Pressure [Right] O2 Sat by Pulse Oximetry 07/22/19 07/22/19 07/22/19 02:12 02:17 02:24 Temperature Pulse Rate 77 75 77 Respiratory Rate Blood Pressure 102/63 102/65 101/55 Blood Pressure [Right] O2 Sat by Pulse Oximetry 07/22/19 07/22/19 07/22/19 02:28 02:33 02:38 Temperature Pulse Rate 78 75 82 Respiratory Rate Blood Pressure 95/60 101/62 112/68 Blood Pressure [Right] O2 Sat by Pulse Oximetry 07/22/19 07/22/19 07/22/19 02:42 02:48 02:53 Temperature Pulse Rate 78 76 84 Respiratory 16 Rate Blood Pressure 108/66 114/57 113/70 Blood Pressure [Right] O2 Sat by Pulse Oximetry 07/22/19 07/22/19 07/22/19 02:58 03:00 03:04 Temperature Pulse Rate 96 H 95 H 95 H Respiratory 16 Rate Blood Pressure 113/71 113/64 Blood Pressure 113/64 [Right] O2 Sat by Pulse Oximetry 07/22/19 07/22/19 07/22/19 03:07 03:13 03:18 Temperature Pulse Rate 81 89 93 H Respiratory Rate Blood Pressure 110/65 118/66 125/61 Blood Pressure [Right] O2 Sat by Pulse Oximetry 07/22/19 07/22/19 07/22/19 03:22 03:29 03:33 Temperature Pulse Rate 85 81 80 Respiratory Rate Blood Pressure 116/58 116/55 96/59 Blood Pressure [Right] O2 Sat by Pulse Oximetry 07/22/19 07/22/19 07/22/19 03:39 03:40 03:42 Temperature Pulse Rate 77 77 85 Respiratory 16 Rate Blood Pressure 102/62 107/64 Blood Pressure 102/62 [Right] O2 Sat by Pulse 99 Oximetry 07/22/19 07/22/19 07/22/19 03:47 03:53 03:57 Temperature Pulse Rate 86 78 77 Respiratory Rate Blood Pressure 122/71 92/51 91/54 Blood Pressure [Right] O2 Sat by Pulse Oximetry 07/22/19 07/22/19 07/22/19 04:03 04:08 04:13 Temperature 97.4 F L Pulse Rate 79 75 81 Respiratory 16 Rate Blood Pressure 102/63 103/61 109/60 Blood Pressure 102/63 [Right] O2 Sat by Pulse Oximetry 07/22/19 07/22/19 07/22/19 04:18 04:23 04:28 Temperature Pulse Rate 78 81 86 Respiratory Rate Blood Pressure 92/54 106/66 107/73 Blood Pressure [Right] O2 Sat by Pulse Oximetry 07/22/19 07/22/19 07/22/19 04:32 04:38 04:43 Temperature Pulse Rate 82 82 82 Respiratory Rate Blood Pressure 101/68 110/63 111/70 Blood Pressure [Right] O2 Sat by Pulse Oximetry 07/22/19 07/22/19 07/22/19 04:50 04:53 05:06 Temperature Pulse Rate 81 81 77 Respiratory 16 Rate Blood Pressure 89/52 96/61 104/69 Blood Pressure 105/63 [Right] O2 Sat by Pulse Oximetry 07/22/19 07/22/19 07/22/19 05:25 05:54 06:25 Temperature Pulse Rate 79 77 82 Respiratory Rate Blood Pressure 94/56 105/63 91/52 Blood Pressure [Right] O2 Sat by Pulse Oximetry 07/22/19 07/22/19 07/22/19 06:54 07:04 07:23 Temperature Pulse Rate 78 81 Respiratory 16 Rate Blood Pressure 107/71 100/57 Blood Pressure [Right] O2 Sat by Pulse Oximetry 07/22/19 07/22/19 07/22/19 07:53 08:01 08:23 Temperature 97.4 F L Pulse Rate 82 82 83 Respiratory 16 Rate Blood Pressure 103/61 93/53 Blood Pressure 103/61 [Right] O2 Sat by Pulse Oximetry 07/22/19 07/22/19 07/22/19 08:53 09:24 09:54 Temperature Pulse Rate 96 H 87 87 Respiratory Rate Blood Pressure 108/75 98/57 90/56 Blood Pressure [Right] O2 Sat by Pulse Oximetry 07/22/19 07/22/19 07/22/19 10:53 11:23 11:55 Temperature Pulse Rate 91 H 90 92 H Respiratory Rate Blood Pressure 101/60 95/63 104/61 Blood Pressure [Right] O2 Sat by Pulse Oximetry 07/22/19 07/22/19 07/22/19 11:57 12:24 12:54 Temperature 97.4 F L Pulse Rate 16 L 88 83 Respiratory 16 Rate Blood Pressure 101/63 89/54 Blood Pressure 104/61 [Right] O2 Sat by Pulse Oximetry 07/22/19 13:23 Temperature Pulse Rate 85 Respiratory Rate Blood Pressure 80/50 Blood Pressure [Right] O2 Sat by Pulse Oximetry - Exam Abdomen: Present: normal appearance, soft Uterus: Present: normal FHR: category 1 Uterine Contraction Monitor Mode: External Cervical Dilatation: 1 Cervical Effacement Percentage: 50 station: -2 Uterine Contraction Pattern: Irregular Uterine Tone Measurement Phase: Contraction Uterine Contraction Intensity: Mild - Labs Labs: Abnormal Labs 07/22/19 07/22/19 00:00 07:00 WBC 11.4 H Hgb 9.9 L MCH 26 L Seg Neutrophils % 70.8 H Seg Neutrophils # 8.0 H Magnesium 5.40 H Laboratory Results - last 24 hr 07/21/19 07/21/19 07/22/19 22:37 22:37 00:00 WBC 11.4 H RBC 3.74 Hgb 9.9 L Hct 31.0 MCV 83 MCH 26 L MCHC 32 RDW 14.7 Plt Count 230 Lymph % (Auto) 21.3 [place] % (Auto) 6.6 Eos % (Auto) 1.0 Baso % (Auto) 0.3 Lymph # 2.4 [place] # 0.8 Eos # 0.1 Baso # 0.0 Seg Neutrophils % 70.8 H Seg Neutrophils # 8.0 H Magnesium Urine Color Straw Urine Turbidity Clear Urine pH 6.0 Ur Specific [place] 1.009 Urine Protein <15 mg/dl Urine Glucose (UA) Neg Urine Ketones 20 Urine Blood Neg Urine Nitrite Neg Urine Bilirubin Neg Urine Urobilinogen < 2.0 Ur Leukocyte Esterase Mod Urine WBC (Auto) < 1.0 Urine RBC (Auto) 2.0 U Epithel Cells (Auto) 1.0 Urine Bacteria (Auto) 1+ Urine Opiates Screen Presumptive negative Urine Methadone Screen Presumptive negative Ur Barbiturates Screen Presumptive negative Ur Phencyclidine Scrn Presumptive negative Ur Amphetamines Screen Presumptive negative U Benzodiazepines Scrn Presumptive negative Urine Cocaine Screen Presumptive negative U Marijuana (THC) Screen Presumptive negative Drugs of Abuse Note Disclamer Syphilis IgG Antibody Hep Bs Antigen Hepatitis C Antibody Rubella IgG Antibody Blood Type Antibody Screen 07/22/19 07/22/19 07/22/19 00:00 00:00 00:00 WBC RBC Hgb Hct MCV MCH MCHC RDW Plt Count Lymph % (Auto) [place] % (Auto) Eos % (Auto) Baso % (Auto) Lymph # [place] # Eos # Baso # Seg Neutrophils % Seg Neutrophils # Magnesium Urine Color Urine Turbidity Urine pH Ur Specific [place] Urine Protein Urine Glucose (UA) Urine Ketones Urine Blood Urine Nitrite Urine Bilirubin Urine Urobilinogen Ur Leukocyte Esterase Urine WBC (Auto) Urine RBC (Auto) U Epithel Cells (Auto) Urine Bacteria (Auto) Urine Opiates Screen Urine Methadone Screen Ur Barbiturates Screen Ur Phencyclidine Scrn Ur Amphetamines Screen U Benzodiazepines Scrn Urine Cocaine Screen U Marijuana (THC) Screen Drugs of Abuse Note Syphilis IgG Antibody Non-reactive Hep Bs Antigen Non-reactive Hepatitis C Antibody Non-reactive Rubella IgG Antibody Immune Blood Type Antibody Screen 07/22/19 07/22/19 07/22/19 00:00 00:00 07:00 WBC RBC Hgb Hct MCV MCH MCHC RDW Plt Count Lymph % (Auto) [place] % (Auto) Eos % (Auto) Baso % (Auto) Lymph # [place] # Eos # Baso # Seg Neutrophils % Seg Neutrophils # Magnesium 1.90 5.40 H Urine Color Urine Turbidity Urine pH Ur Specific [place] Urine Protein Urine Glucose (UA) Urine Ketones Urine Blood Urine Nitrite Urine Bilirubin Urine Urobilinogen Ur Leukocyte Esterase Urine WBC (Auto) Urine RBC (Auto) U Epithel Cells (Auto) Urine Bacteria (Auto) Urine Opiates Screen Urine Methadone Screen Ur Barbiturates Screen Ur Phencyclidine Scrn Ur Amphetamines Screen U Benzodiazepines Scrn Urine Cocaine Screen U Marijuana (THC) Screen Drugs of Abuse Note Syphilis IgG Antibody Hep Bs Antigen Hepatitis C Antibody Rubella IgG Antibody Blood Type O POSITIVE Antibody Screen Negative
[2019-07-22] MEDS: PRENATAL VIT27-FE FUMARATE-FOLIC ACID VIT TAB PO SCH (14:23)
[2019-07-22] MEDS ORDERED: MAGNESIUM SULFATE 40GM/1000ML 40 GM/1,000 ML BAG IV SCH (22:00)
[2019-07-22 23:24] LABS: Bilirubin,Urine NEG (Negative); Blood,Urine NEG (Negative); Color,Urine Straw (Yellow); Mucus,Urine FEW /HPF; Protein,Urine <15 mg/dL mg/dL (Negative); Urobilinogen,Urine < 2.0 mg/dL (<2.0)
[2019-07-23] MEDS: AMPICILLIN/NS 1 GM/50 ML 1 GM/50 ML BAG IV SCH ×4 (00:11→13:11)
[2019-07-23] MEDS: CALCIUM CARBONATE 500 MG TAB CHEW PO SCH ×2 (00:48→09:49)
[2019-07-23] MEDS: BETAMET ACET/BETAMET NA PH 6 MG/ML INJ 5 ML MDV IM SCH (00:54)
[2019-07-23] MEDS ORDERED: HYDROmorphone 1 MG/1 ML INJ ONE (04:52)
[2019-07-23] MEDS ORDERED: LIDOCAINE 2%/EPINEPHRINE 1:200,000 VIAL (20 ML) INFILTRATI ONE (04:59)
[2019-07-23] MEDS ORDERED: ONDANSETRON 4 MG/2 ML INJ ONE (04:59)
[2019-07-23] MEDS ORDERED: DEXMEDETOMIDINE 200 MCG/2 ML VIAL IV ONE (04:59)
[2019-07-23] MEDS ORDERED: KETOROLAC 30 MG/1 ML INJ ONE (04:59)
[2019-07-23] MEDS ORDERED: ceFAZolin 1 GM VIAL ONE (04:59)
[2019-07-23] MEDS: LACTATED RINGERS 1,000 ML IV SCH (07:02)
[2019-07-23] MEDS ORDERED: BUTORPHANOL 2 MG/1 ML INJ IV PRN (09:30)
[2019-07-23] MEDS: PRENATAL VIT27-FE FUMARATE-FOLIC ACID VIT TAB PO SCH (09:49)
--- NOTE | 2019-07-23 13:23 | Discharge Summary ---
Providers - Providers Date of Admission: 07/22/19 01:11 Date of discharge: 07/23/19 Attending physician: GULSHAN BOURNE 07/22/19 01:11 Consult to Physician [CONS] Stat Comment: Consulting Provider: STACI BLAIR Physician Instructions: Reason For Exam: IUP @ 33 weeks 07/22/19 07:29 Consult to Physician [CONS] Urgent Comment: Consulting Provider: KADEN GREGORIO Physician Instructions: Reason For Exam: IUP @ 33 weeks; PTL [facility] Reason for admission: IUP - , observation, labor Episiotomy: none Laceration: none Other procedures: none complications: none Discharge diagnosis: other (IUP @ 33 5/7 weeks; contractions - resolved.) Hospital course: Pt is a 34yo BF EDC 09/05/19; EGA 33 4/7 weeks presents to [facility] L&D complaining of RUC's q 3-5 mins. She received care at [facility] and course significant for multiple deliveries between 30-35weeks. She was on [place] with vaginal progesterone, but that was discontinued 2 weeks ago. She was hospitalized at [facility] about 2 weeks ago, and did NOT receive steroids. records are now available. She received IV Magnesium sulfate, steroids and antibiotics and her contractions have resolved. Cx /V/-2 - essentially unchanged from her [facility] admission. [facility] records reviewed. She will therefore be discharged to home today and will follow up in the office in 5 days. Condition at discharge: Good Disposition: DC-01 TO HOME OR SELFCARE - Discharge Diagnoses (1) 33 weeks gestation of Status: Acute (2) contractions Status: Resolved (3) Previous delivery in third trimester, antepartum Status: Chronic Plan - Discharge Medications Prescriptions: Ferrous Sulfate [Iron 325 MG] 1 tab PO DAILY #30 - Provider Discharge Summary Activity: routine, no sex for 6 weeks, no heavy lifting 4 weeks, no strenuous exercise Diet: routine Instructions: routine Additional instructions: [] Smoking cessation referral if applicable(refer to patient education folder for contact #) [] Refer to [facility]'s [facility] Booklet Call your doctor immediately for: * Fever > 100.5 * Heavy vaginal bleeding ( >1 pad per hour) * Severe persistent headache * Shortness of breath * Reddened, hot, painful area to leg or breast * Drainage or odor from incision. * Keep incision clean and dry at all times and follow doctor's instructions regarding bathing/showering - Follow up plan Follow up: RAMA HARDING MD [Primary Care Provider] - 7 Days GULSHAN BOURNE MD [Staff Physician] - 7 Days
[2019-07-23 13:24] VITALS: BP 96/57
[2019-07-29 05:58] LABS: HIV-1 Antibody Differentiation SEE SCANNED RESULT; HIV-2 Antibody Differentiation SEE SCANNED RESULT
== END 2019-07-23 14:28 | disposition home or self-care (01) | DRG 778 ==
LOC: TRG 19:52 → OBSVTOIN 20:59 → UNDOADMOB 20:59 → LD 20:59 → INTOOBSV 20:59 → TRG 20:59 → LD 07-22 01:11 → OBSVTOIN 07-22 01:11
PROVIDERS: ADMIT Obstetrics & Gynecology; ATTEND Obstetrics & Gynecology
DX: O60.03 Preterm labor without delivery, third trimester (principal); Z3A.33 33 weeks gestation of pregnancy
CPT/HCPCS: 36415; 76805; 80307; 81001; 83735; 85025; 86592; 86689; 86706; 86762; 86803; 86850; 86900; 86901; G0378; J0290; J0595; J0690; J0702; J1170; J1885; J2405; J3105; J3475; J3490; J7120

== ENCOUNTER 2019-08-03 01:02 | Outpatient (CLI) | payer MEDICAID ==
[2019-08-03] MEDS ORDERED: LACTATED RINGERS 500 ML IV ONE (01:26)
[2019-08-03 02:37] VITALS: BP 139/82
== END 2019-08-03 02:57 | disposition home or self-care (01) ==
LOC: TRG 01:02
PROVIDERS: ATTEND Obstetrics & Gynecology
DX: O47.03 False labor before 37 completed weeks of gestation, third trimester (principal); Z3A.35 35 weeks gestation of pregnancy
CPT/HCPCS: 59025; 96360; J7120

== ENCOUNTER 2019-08-16 18:25 | Inpatient (IN) | payer MEDICAID ==
[2019-08-16] MEDS ORDERED: AMPICILLIN/NS 2 GM/100 ML 2 GM/100 ML BAG IV ONE (19:14)
[2019-08-16] MEDS ORDERED: ePHEDrine SULFATE 50 MG/1 ML INJ IV PRN (19:14)
[2019-08-16] MEDS ORDERED: TERBUTALINE 1 MG/1 ML INJ SUB-Q PRN (19:14)
[2019-08-16] MEDS ORDERED: fentaNYL 100 MCG/2 ML INJ IV PRN (19:14)
[2019-08-16] MEDS ORDERED: LIDOCAINE (2%) 20 MG/1 ML VIAL 20 ML MDV INFILTRATI ONE (19:14)
--- NOTE | 2019-08-16 19:33 | History and Physical Report ---
History of Present Illness Date of examination: 08/16/19 Date of admission: 08/16/19 18:25 Chief complaint: Leaking of water History of present illness: 34 year old presents to L&D complaining of leaking of clear fluid from vagina since 5:42 PM today. Patient also reports contractions. She denies vaginal bleeding. Patient reports active movement. Patient is a walk in patient who states she receives her care at [facility] (states her last office visit was 08/08/19). Patient states her LMP was 10/29/18 and she states her EDC is 09/05/19. Patient reports history of a low transverse section in 2004 for breech. She states since then she has had seven vaginal births. Patient states she has had severe anemia during this and has received oral and parenteral iron; she reports she did have contractions several weeks ago which resolved. Pateint reports she had an elevated 1 hour sugar test during this but did not take a 3 hour OGTT. She reports she had gestational diabetes with most of her other pregnancies. records and labs are not available. labs have been drawn upon admission. US in our system here done on 07/21/19 puts patient at 37 weeks, 4 days gestation today. 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 denies: smoking (stopped smoking a year ago), alcohol abuse, prescription drug abuse, IV drug use - Obstetrical History Expected Date of Delivery: 09/05/19 Actual Gestation: 37 Week(s) 1 Day(s) : 10 Para: 9 Hx # Term Pregnancies: 0 Number of Pregnancies: 9 Spontaneous Abortions: 0 Induced : 0 Number of Living Children: 9 Medications and Allergies Allergies Allergy/AdvReac Type Severity Reaction Status Date / Time No Known Allergies Allergy Verified 11/18/13 15:53 Home Medications Medication Instructions Recorded Confirmed Last Taken Type Vit No.126/Iron/Folic 1 each PO DAILY 11/18/13 07/21/19 07/21/19 History [Classic Tablet] Ferrous Sulfate [Iron 325 MG] 1 tab PO DAILY #30 07/23/19 Unknown Rx Active Meds: Active Medications Ephedrine Sulfate (Ephedrine Sulfate) 10 mg IV Q2M PRN PRN Reason: Hypotension Fentanyl (Sublimaze) 100 mcg IV Q2H PRN PRN Reason: Labor Pain Oxytocin/Sodium Chloride (Pitocin/Ns 20 Unit/1000ml Drip) 20 units in 1,000 mls @ 125 mls/hr IV DIRECT YONATAN Lactated Ringer's (Lactated Ringers) 1,000 mls @ 125 mls/hr IV DIRECT YONATAN Ampicillin Sodium (Ampicillin/Ns 2 Gm/100 Ml) 2 gm in 100 mls @ 100 mls/hr IV ONCE ONE; Protocol Stop: 08/16/19 20:13 Ampicillin Sodium (Ampicillin/Ns 1 Gm/50 Ml) 1 gm in 50 mls @ 100 mls/hr IV Q4HR YONATAN; Protocol Lidocaine (Xylocaine 2%) 20 ml INFILTRATI ONCE ONE Stop: 08/16/19 19:15 Terbutaline Sulfate (Brethine) 0.25 mg SUB-Q ONCE PRN PRN Reason: Hyperstimulation/Hypertonicity Review of Systems All systems: negative (leaking of fluid from vagina; contractions) - Vital Signs Vital signs: Vital Signs Pulse BP 72 128/86 08/16/19 18:46 08/16/19 18:46 Temp Pulse Resp BP Pulse Ox 72 128/86 08/16/19 18:46 08/16/19 18:46 - Physical Exam Abdomen: Positive: normal appearance, soft. Negative: distention, tenderness, guarding, rigidity Genitourinary (Female): Positive: normal external genitalia, normal perenium. Negative: perineal/vulvar lesions (no lesions seen on careful exam under bright light upon admission) Vagina: Positive: other (clear fluid seen) Uterus: Positive: enlarged (S=D) Anus/Rectum: Positive: normal perianal skin Extremities: Positive: normal. Negative: tenderness, edema - Obstetrical FHR: category 1 Uterine Contraction Monitor Mode: External Cervical Dilatation: 5 Cervical Effacement Percentage: 80 station: -1 Uterine Contraction Pattern: Regular Uterine Contraction Intensity: Moderate Results Result Diagrams: 08/16/19 18:56 All other labs normal. Assessment and Plan A: at 37 1/7 weeks gestation. SROM. Active labor. Grand multipara. Walk in patient; no records or labs available. Previous section. P: Admit. Request records. Draw labs. GBS prophylaxis. Continuous EFM. Consulted with Dr. Crouch re: patient's complaint of leaking of fluid, exam, previous section in labor with ruptured membranes. Dr. Crouch states it is OK for patient to labor and attempt vaginal and he is in house here in the hospital.
[2019-08-16 19:37] LABS: Hemoglobin 11.8 gm/dl (10.1-14.3); Mean Corpuscular HGB Conc 34 % (30-34); Mean Corpuscular Volume 85 fl (79-97); Platelet Count 240 K/mm3 (140-440); Red Blood Count 4.12 M/mm3 (3.65-5.03)
[2019-08-16 19:39] LABS: Red Cell Distribution Width 21.4 % (13.2-15.2)
[2019-08-16] MEDS ORDERED: OXYTOCIN 20 UNIT/1000ML DRIP 20 UNITS/1,000 ML BAG IV SCH (20:00)
[2019-08-16] MEDS ORDERED: LACTATED RINGERS 1,000 ML IV SCH (20:00)
[2019-08-16] MEDS ORDERED: OXYTOCIN 10 UNIT/1 ML INJ ONE (20:29)
[2019-08-16] MEDS ORDERED: WITCH HAZEL/ GLYCERIN PAD TP PRN (21:15)
[2019-08-16] MEDS ORDERED: MAGNESIUM HYDROXIDE (MOM) ORAL LIQD UDC PO PRN (21:15)
[2019-08-16] MEDS: IBUPROFEN 600 MG TAB PO SCH (21:25)
--- NOTE | 2019-08-16 21:27 | Procedure Note ---
OB Delivery Note - Delivery Date of Delivery: 08/16/19 Surgeon: SPIKE SHAH Estimated blood loss: other (250 cc) - Vaginal Delivery presentation: vertex Delivery position: OA Intrapartum events: none Delivery induction: none Delivery monitor: external FHT, external uterine Route of delivery: Delivery placenta: spontaneous Delivery cord: nuchal cord, 3 umbilical vessels Episiotomy: none Delivery laceration: none Anesthesia: none Delivery comments: Spontaneous vaginal delivery at 20:51 of liveborn female infant weighing 6 lb. 8 oz. over intact perineum with apgars of 8/9. Nuchal cord times 1, manually reduced. Baby placed skin to skin with mom immediately after . Spontaneous cry and respirations. 3 vessel cord double clamped and cut after cessation of pulsation. Cord blood obtained. Spontaneous delivery of intact placenta and membranes. EBL 250 cc. Pitocin to IV fluids after delivery of placenta. Fundus firm and midline. Vaginal sweep negative. No lacerations noted. Sponge count correct. Mother and baby stable.
[2019-08-16 22:25] LABS: Hepatitis C Virus Antibody Non-Reactive (NonReactive)
[2019-08-16 22:26] LABS: Alanine Aminotransferase 8 units/L (7-56); Albumin 3.2 g/dL (3.9-5); BUN/Creatinine Ratio 8; Blood Urea Nitrogen 4 mg/dL (7-17); Calcium 8.5 mg/dL (8.4-10.2); Hemolysis Index 1; Uric Acid 4.8 mg/dL (3.5-7.6)
[2019-08-16] MEDS: HYDROcodone/ACETAMINOPHEN 5-325 MG TAB PO PRN (22:38)
[2019-08-16 22:56] LABS: Bilirubin,Urine NEG (Negative); Blood,Urine LG (Negative); Color,Urine Red (Yellow); Urobilinogen,Urine < 2.0 mg/dL (<2.0)
[2019-08-16 22:57] LABS: Amphetamine Screen,Urine PRESUMPTIVE NEGATIVE; Benzodiazepines Screen,Urine PRESUMPTIVE NEGATIVE; Cannabinoid Screen,Urine PRESUMPTIVE NEGATIVE; Cocaine Screen,Urine PRESUMPTIVE NEGATIVE; Methadone Screen,Urine PRESUMPTIVE NEGATIVE; Opiate Screen,Urine PRESUMPTIVE NEGATIVE; RBC,Urine > 182.0 /HPF (0.0-6.0)
[2019-08-16] MEDS ORDERED: AMPICILLIN/NS 1 GM/50 ML 1 GM/50 ML BAG IV SCH (23:23)
[2019-08-17] MEDS: HYDROcodone/ACETAMINOPHEN 5-325 MG TAB PO PRN ×3 (04:29→19:05)
[2019-08-17] MEDS: IBUPROFEN 600 MG TAB PO SCH ×3 (04:30→16:16)
[2019-08-17] MEDS: LANOLIN/ZINC/DIMETHICONE (LANSINOH) 7 GM TP PRN (11:20)
--- NOTE | 2019-08-17 11:32 | Progress Note ---
Assessment and Plan A: day 1 S/P . P: See orders. Anticipate discharge in 24-48 hours. Cath UA and C&S, K-Dur 20 mEQ po once, repeat CMP tomorrow AM. Subjective - Subjective Date of service: 08/17/19 Principal diagnosis: day 1 S/P Interval history: day 1 S/P . Doing well. Patient reports small amount of lochia. Voiding without difficulty, ambulating well, tolerating a regular diet. Patient denies headache, chest pain, shortness of breath, abdominal pain, leg pain, or heavy bleeding. Patient reports: appetite normal, voiding normally, pain well controlled, flatus, ambulating normally, no dizzy ambulation, no nauseated [place]: doing well Objective - Vital Signs Latest vital signs: Vital Signs Temp Pulse Resp BP BP Pulse Ox 08/17/19 08:29 97.6 F 64 18 121/77 08/17/19 05:29 18 08/17/19 05:28 98.1 F 74 20 134/73 98 08/17/19 04:29 18 08/16/19 23:38 18 08/16/19 23:06 97.9 F 67 18 115/82 100 08/16/19 22:25 18 08/16/19 22:22 74 130/82 08/16/19 22:10 75 100 08/16/19 22:05 73 100 08/16/19 22:00 82 100 08/16/19 21:55 80 100 08/16/19 21:51 76 141/81 08/16/19 21:50 73 100 08/16/19 21:41 76 100 08/16/19 21:36 73 100 08/16/19 21:35 78 140/82 08/16/19 21:31 79 100 08/16/19 21:26 84 100 08/16/19 21:21 81 100 08/16/19 21:20 88 131/71 08/16/19 21:16 75 100 08/16/19 21:11 78 100 08/16/19 21:06 74 100 08/16/19 21:04 98.0 F 80 18 141/75 141/75 100 08/16/19 21:01 83 100 08/16/19 19:37 80 138/84 08/16/19 19:12 98.0 F 80 18 138/84 98 08/16/19 18:46 72 128/86 Intake and Output 08/16/19 08/17/19 08/17/19 23:59 07:59 15:59 Intake Total 360 480 Output Total 700 Balance -340 480 Intake: Oral 360 480 Output: Urine 700 Void 700 Other: Total, Intake Amount 120 480 Total, Output Amount 300 Weight 53.524 kg - Exam Cardiovascular: Present: Regular rate, Normal S1, Normal S2, No murmurs Lungs: Present: Clear to auscultation Abdomen: Present: normal appearance, soft, normal bowel sounds. Absent: distention, tenderness, guarding, rigidity Uterus: Present: normal, firm, fundal height below umbilicus. Absent: bogginess, tenderness Extremities: Present: normal. Absent: tenderness, edema - Labs Labs: Abnormal lab results 08/16/19 08/16/19 08/16/19 Range/Units 18:56 21:40 22:26 RDW 21.4 H (13.2-15.2) % Sodium 136 L (137-145) mmol/L Potassium 3.1 L (3.6-5.0) mmol/L Carbon Dioxide 17 L (22-30) mmol/L BUN 4 L (7-17) mg/dL Creatinine 0.5 L (0.7-1.2) mg/dL Glucose 123 H (65-100) mg/dL Alkaline Phosphatase 155 H (35-129) units/L Total Protein 5.8 L (6.3-8.2) g/dL Albumin 3.2 L (3.9-5) g/dL Urine WBC (Auto) 58.0 H (0.0-6.0) /HPF
[2019-08-17 11:38] LABS: Hematocrit 28.4 % (30.3-42.9); Hemoglobin 9.5 gm/dl (10.1-14.3)
[2019-08-17] MEDS ORDERED: POTASSIUM CHLORIDE ER 20 MEQ TAB PO SCH (12:00)
[2019-08-18] MEDS: FERROUS SULFATE 325 MG TAB PO SCH ×3 (00:18→22:01)
[2019-08-18] MEDS: IBUPROFEN 600 MG TAB PO SCH ×2 (00:18→05:53)
[2019-08-18] MEDS: HYDROcodone/ACETAMINOPHEN 5-325 MG TAB PO PRN ×2 (00:45→06:38)
--- NOTE | 2019-08-18 09:59 | Progress Note ---
Assessment and Plan - Patient Problems (1) Single live Current Visit: Yes Status: Acute (2) , delivered, current hospitalization Current Visit: Yes Status: Acute Plan to address problem: PPD 2 - unstable Continue routine orders Anticipate discharge today if uterine rupture ruled-out (3) Uncontrolled pain Current Visit: Yes Status: Acute Plan to address problem: Limited OB US and CBC ordered to r/o uterine rupture Ibuprofen increased from 600mg to 800mg PO q6hr prn [place] discontinued and Percocet ordered (4) Anemia due to blood loss, acute Current Visit: Yes Status: Acute Plan to address problem: Asymptomatic Continue iron therapy Subjective - Subjective Date of service: 08/18/19 Principal diagnosis: PPD 2; s/p ; Interval history: see H&P, OB Delivery Procedure Note, PP/PALM GATHERER Progress Note Patient reports: appetite normal, voiding normally, pain poorly controlled (pain level 9/10), ambulating normally, other (guarding noted at incision site), no dizzy ambulation [place]: doing well, other (breast and bottle feeding) Objective - Vital Signs Latest vital signs: Vital Signs Temp Pulse Resp BP BP Pulse Ox 08/18/19 08:24 97.8 F 74 20 124/78 98 08/18/19 06:53 18 08/18/19 06:38 18 08/18/19 05:53 18 08/18/19 01:45 18 08/18/19 01:18 18 08/18/19 00:45 18 08/18/19 00:18 18 08/17/19 20:05 18 08/17/19 19:05 18 08/17/19 16:40 97.9 F 75 18 117/74 Intake and Output 08/17/19 08/18/19 08/18/19 23:59 07:59 15:59 Intake Total 900 660 Balance 900 660 Intake: Oral 480 Intake, Free Water 420 660 Other: Total, Intake Amount 480 # Voids Void 1 1 - Exam Cardiovascular: Present: Regular rate Lungs: Present: Clear to auscultation Abdomen: Present: normal appearance, soft Uterus: Present: normal, firm, tenderness, fundal height at umbilicus Extremities: Present: normal Comments: scant lochia - Labs Labs: Abnormal lab results 08/17/19 Range/Units 10:53 Hgb 9.5 L (10.1-14.3) gm/dl Hct 28.4 L D (30.3-42.9) %
[2019-08-18] MEDS ORDERED: IBUPROFEN 600 MG TAB PO SCH (10:00)
[2019-08-18] MEDS: IBUPROFEN 800 MG TAB PO SCH ×2 (11:11→17:01)
[2019-08-18 12:07] LABS: Hematocrit 27.4 % (30.3-42.9); Hemoglobin 9.1 gm/dl (10.1-14.3); Mean Corpuscular HGB Conc 33 % (30-34); Mean Corpuscular Volume 84 fl (79-97); Platelet Count 216 K/mm3 (140-440); Red Blood Count 3.24 M/mm3 (3.65-5.03)
[2019-08-18 12:25] LABS: Alanine Aminotransferase 10 units/L (7-56); Albumin 3.3 g/dL (3.9-5); BUN/Creatinine Ratio 8; Blood Urea Nitrogen 4 mg/dL (7-17); Calcium 8.9 mg/dL (8.4-10.2); Hemolysis Index 0
[2019-08-18] MEDS: oxyCODONE /ACETAMINOPHEN 5-325MG TAB PO PRN ×2 (13:28→22:01)
[2019-08-18] MEDS: LANOLIN/ZINC/DIMETHICONE (LANSINOH) 7 GM TP PRN (13:30)
--- NOTE | 2019-08-18 14:00 | Ultrasound Report ---
PELVIC ULTRASOUND HISTORY: R/O Uterine Rupture, s/p , Pain 9/10 COMPARISON: None. TECHNIQUE: Transverse and longitudinal images were obtained of the pelvis using transabdominal ultras ound. FINDINGS: Uterus: uterus is suspected. The uterus measures 19.9 x 10.6 x 12.9 cm. Endometrium: The endometrium measures 8 mm near the fundus and within the uterine body. The endometri um appears thickened and complex in the lower uterine segment measuring up to 2 cm in thickness. Right Ovary: Normal size, blood flow and appearance measuring 2.7 x 1.5 x 2.1 cm. Left Ovary: Obscured Additional findings: None. IMPRESSION: uterus. No obvious signs of uterine rupture on ultrasound. Thickening of the endometrium in the lower uterine segment up to 2 cm which could represent retained products of conception or blood products. If further evaluation is needed MR pelvis may prove useful. Signer Name: Gustabo José Jr, MD Signed: 08/18/2019 1:55 PM Workstation Name: [id number]
[2019-08-19] MEDS: oxyCODONE /ACETAMINOPHEN 5-325MG TAB PO PRN ×2 (07:58→15:26)
[2019-08-19] MEDS: FERROUS SULFATE 325 MG TAB PO SCH (10:53)
[2019-08-19] MEDS: IBUPROFEN 800 MG TAB PO SCH (13:00)
--- NOTE | 2019-08-19 14:50 | Progress Note ---
Assessment and Plan - Patient Problems (1) , delivered, current hospitalization Current Visit: Yes Status: Acute Plan to address problem: D/C today Methergine 0.2mg po TID x 3 days F/U in 1 week in office (2) Anemia due to blood loss, acute Current Visit: Yes Status: Acute Plan to address problem: Asymptomatic Continue daily oral iron supplementation as ordered Increase iron rich foods into diet Subjective - Subjective Date of service: 08/19/19 Principal diagnosis: PPD 3; s/p Interval history: See admission H & P; OB delivery summary and PP progress notes Patient reports: appetite normal, voiding normally, pain well controlled (with medications), flatus, bowel movement, ambulating normally [place]: doing well, bottle feeding Objective - Vital Signs Latest vital signs: Vital Signs Temp Pulse Resp BP Pulse Ox 08/19/19 07:58 20 08/19/19 07:53 98.3 F 66 20 112/68 96 08/19/19 01:20 97.7 F 73 18 131/87 95 08/18/19 16:38 98.2 F 72 20 127/80 97 Intake and Output 08/18/19 08/19/19 08/19/19 23:59 07:59 15:59 Intake Total 360 360 Balance 360 360 Intake: Oral 360 360 Other: Total, Intake Amount 360 360 # Voids Void 1 - Exam Breasts: Present: normal Cardiovascular: Present: Regular rate Lungs: Present: Normal air movement Abdomen: Present: soft, tenderness Uterus: Present: firm, fundal height at umbilicus Extremities: Present: normal Deep Tendon Reflex Grade: Normal +2
--- NOTE | 2019-08-19 14:55 | Discharge Summary ---
Providers - Providers Date of Admission: 08/16/19 18:25 Date of discharge: 08/19/19 Attending physician: MARIKA KHALIL Primary care physician: [employer] Hospitalization Reason for admission: active labor, rupture of membranes Delivery: Episiotomy: none Laceration: none complications: uterine atony Discharge diagnosis: (anemia) baby: female Hospital course: See admission H & P; OB delivery summary and PP progress notes Condition at discharge: Stable Disposition: DC-[id number] TO HOME OR SELFCARE - Discharge Diagnoses (1) , delivered, current hospitalization Status: Acute (2) Anemia due to blood loss, acute Status: Acute Plan - Discharge Medications Prescriptions: Ferrous Sulfate [Feosol 325 MG tab] 325 mg PO BID #60 tablet Methylergonovine [Methergine] 0.2 mg PO Q8HR 3 Days #9 tablet Ibuprofen [Motrin 800 MG tab] 800 mg PO Q6H #30 tablet - Provider Discharge Summary Activity: routine, no sex for 6 weeks, no heavy lifting 4 weeks, no strenuous exercise Diet: other (Iron rich diet) Instructions: routine Additional instructions: [] Smoking cessation referral if applicable(refer to patient education folder for contact #) [] Refer to [facility]'s [facility] Booklet Call your doctor immediately for: * Fever > 100.5 * Heavy vaginal bleeding ( >1 pad per hour) * Severe persistent headache * Shortness of breath * Reddened, hot, painful area to leg or breast * Drainage or odor from incision. * Continue daily oral iron supplementation as directed - Follow up plan Follow up: AMRIK BOATENG MD [Staff Physician] - 7 Days Forms: [facility] Discharge Summary
[2019-08-19] MEDS ORDERED: METHYLERGONOVINE 0.2 MG TABLET PO SCH (16:30)
[2019-08-19 17:04] VITALS: BP 150/89
== END 2019-08-19 17:25 | disposition home or self-care (01) | DRG 775 ==
LOC: LD 18:25 → OB 23:52
PROVIDERS: ADMIT Obstetrics & Gynecology; ATTEND Obstetrics & Gynecology
PROC: 10E0XZZ Delivery of Products of Conception, External Approach (ICD-10-PCS; principal; 2019-08-16)
DX: O34.219 Maternal care for unspecified type scar from previous cesarean delivery (principal); Z3A.37 37 weeks gestation of pregnancy; Z37.0 Single live birth; O62.2 Other uterine inertia; D62 Acute posthemorrhagic anemia; O69.81X0 Labor and delivery complicated by cord around neck, without compression, not applicable or unspecified; O90.81 Anemia of the puerperium
CPT/HCPCS: 36415; 76856; 80053; 80307; 81001; 83036; 83615; 84550; 85014; 85018; 85027; 86592; 86706; 86762; 86803; 86850; 86900; 86901; 87086; 87806; G0378; A6250; J0290; J2590; J3010; J7120